=== PATIENT | female | born 1980 | race Caucasian/White ===

== ENCOUNTER 2017-02-20 15:18 | Emergency (ER) | payer MEDICAID ==
[~2017-02-20] VITALS: Ht 172.7 cm; Wt 110.0 kg
[2017-02-20] MEDS ORDERED: PLEASE ENTER HEIGHT AND WEIGHT MC SCH (16:00)
[2017-02-20] MEDS ORDERED: SODIUM CHLORIDE FLUSH 10ML SYR IVF ONE (16:00)
[2017-02-20] MEDS ORDERED: PLEASE ENTER ALLERGIES MC SCH ×2 (16:00)
[2017-02-20] MEDS ORDERED: SODIUM CHLORIDE 0.9% 1,000ML IVBOLUS ONE (16:00)
[2017-02-20 16:06] LABS: HEMATOCRIT 48.2 % (34.6-47.8); HEMOGLOBIN 15.1 g/dL (11.7-16.4); WHITE BLOOD COUNT 9.9 x10^3/uL (3.4-10)
[2017-02-20 16:19] LABS: BLOOD UREA NITROGEN 7 mg/dL (7-18)
[2017-02-20 16:56] VITALS: BP 122/79
== END 2017-02-20 17:02 | disposition home or self-care (01) ==
LOC: ED 16:00
DX: R56.9 Unspecified convulsions (principal); F32.9 Major depressive disorder, single episode, unspecified; G35 Multiple sclerosis
CPT/HCPCS: 36415; 71010; 80048; 82040; 84703; 85025; 96360; 99285; J7030

== ENCOUNTER 2017-02-25 15:52 | Emergency (ER) | payer MEDICAID ==
[~2017-02-25] VITALS: Ht 172.7 cm; Wt 110.0 kg
[2017-02-25] MEDS ORDERED: LORazepam 2 MG/ML, 1ML ONE (16:13)
[2017-02-25] MEDS ORDERED: SODIUM CHLORIDE 0.9% 1,000 ML IV ONE (16:15)
[2017-02-25] MEDS ORDERED: LORazepam 2 MG/ML, 1ML IVPush ONE (16:30)
[2017-02-25] MEDS ORDERED: SODIUM CHLORIDE FLUSH 10ML SYR IVF ONE (16:30)
[2017-02-25 16:44] LABS: HEMATOCRIT 48.2 % (34.6-47.8); HEMOGLOBIN 15.5 g/dL (11.7-16.4); WHITE BLOOD COUNT 7.8 x10^3/uL (3.4-10)
[2017-02-25 16:54] LABS: ASPARTATE AMINO TRANSFERASE 31 U/L (15-37); BLOOD UREA NITROGEN 9 mg/dL (7-18)
[2017-02-25 16:57] LABS: ACETAMINOPHEN < 2 mcg/mL (10-30)
[2017-02-25 18:41] VITALS: BP 113/57
[2017-02-25 18:52] LABS: PATH.CAST-FLAG NOT PRESENT; SPERM-FLAG NOT PRESENT; SRC-FLAG NOT PRESENT; XTAL-FLAG NOT PRESENT; YLC-FLAG NOT PRESENT
[2017-02-25] MEDS ORDERED: LEVETIRACETAM 1,000 MG in SODIUM CHLORIDE 0.9% 100 ML IV ONE (19:00)
== END 2017-02-25 19:33 | disposition home or self-care (01) ==
LOC: MERGE 15:52 → ED 19:20
DX: N30.90 Cystitis, unspecified without hematuria (principal); R56.9 Unspecified convulsions; G40.909 Epilepsy, unspecified, not intractable, without status epilepticus
CPT/HCPCS: 36415; 70450; 71010; 80053; 80307; 80329; 81001; 85025; 87086; 93005; 96361; 96374; 96375; 99285; J1953; J2060; J7030; G0480